=== PATIENT | female | born 1995 | race African-American/Black ===

== ENCOUNTER 2017-05-08 20:42 | Inpatient (IN) | payer MEDICAID, OTHER ==
[~2017-05-08] VITALS: Ht 165.1 cm; Wt 82.6 kg
[2017-05-09] MEDS ORDERED: FUROSEMIDE 40MG/4ML VIAL IV ONE (00:30)
[2017-05-09] MEDS ORDERED: METHYLPREDNISOLONE SOD SUCC 125 MG/2 ML VIAL IV ONE (00:30)
[2017-05-09 00:49] LABS: HEMATOCRIT. 34.8 % (36.0-48.0); HEMOGLOBIN. 11.9 g/dL (12.0-16.0); MEAN CORPUSCULAR VOLUME 87.6 fL (81.0-99.0); MEAN PLATELET VOLUME 8.4 fl (7.4-10.4); PLATELET 337 x1000/uL (130-400); RED BLOOD CELL COUNT 3.97 mill/uL (4.2-5.4); RED CELL DISTRIBUTION WIDTH 16.1 % (11.6-14.6)
[2017-05-09 00:56] LABS: INR 0.9; PROTHROMBIN TIME 9.9 sec (9.4-11.6)
[2017-05-09 01:19] LABS: CARBON DIOXIDE 25 mEq/L (21-32); CHLORIDE 101 mEq/L (98-107)
[2017-05-09 01:20] LABS: CLARITY URINE TURBID (CLEAR); COLOR URINE YELLOW (YELLOW); GLUCOSE URINE NEGATIVE (NEGATIVE); KETONES URINE NEGATIVE (NEGATIVE); LEUKOCYTE ESTERASE URINE 2+ (NEGATIVE); NITRITE URINE NEGATIVE (NEGATIVE); OCCULT BLOOD URINE 1+ (NEGATIVE); PROTEIN URINE 4+ (NEGATIVE); SPECIFIC GRAVITY URINE 1.028 (1.005-1.030); UROBILINOGEN URINE 0.2 E.U./dL (0.2-1.0)
[2017-05-09 01:27] LABS: TROPONIN I < 0.02 ng/mL (0.00-0.04)
[2017-05-09 01:41] LABS: PLATELET ESTIMATE NORMAL
[2017-05-09] MEDS ORDERED: HYDROCODONE/ACETAMINOPHEN 5/325MG TABLET PO PRN (08:15)
[2017-05-09] MEDS ORDERED: MORPHINE SULFATE 2 MG/ML CPJ (NOT FOR IM USE) IV PRN (08:15)
[2017-05-09] MEDS ORDERED: LORAZEPAM 2MG/ML CPJ IV PRN (08:15)
[2017-05-09] MEDS ORDERED: ACETAMINOPHEN 325MG TABLET PO PRN (08:15)
[2017-05-09 08:20] VITALS: BP 126/87
[2017-05-09] MEDS ORDERED: FUROSEMIDE 40MG/4ML VIAL IV SCH ×2 (09:00→13:00)
[2017-05-09 09:30] VITALS: BP 126/87
[2017-05-09] MEDS ORDERED: ENOXAPARIN 40MG/0.4ML SYR SUBCUT SCH (10:00)
[2017-05-09] MEDS ORDERED: P20 PO (10:13)
[2017-05-09] MEDS ORDERED: FURO40TA5 PO (10:13)
[2017-05-09 11:15] VITALS: BP 126/87
[2017-05-09] MEDS: LEVOFLOXACIN 500MG PREMIX 100 ML IV SCH (12:23)
[2017-05-09] MEDS: FUROSEMIDE 40MG/4ML VIAL IV SCH ×2 (12:23→16:12)
[2017-05-09] MEDS: THIAMINE HCL 100MG TABLET PO SCH (12:23)
[2017-05-09 13:04] VITALS: BP 123/77
[2017-05-09] MEDS: POTASSIUM CHLORIDE 20MEQ TABLET SR PO SCH ×2 (14:02→16:08)
[2017-05-09] MEDS: MORPHINE SULFATE 4 MG/ML CPJ (NOT FOR IM USE) IV PRN ×2 (16:09→23:10)
[2017-05-09 16:34] LABS: T4 FREE 0.38 ng/dL (0.76-1.46)
[2017-05-09] MEDS ORDERED: FUROSEMIDE 40MG TABLET PO SCH (17:00)
[2017-05-09] MEDS ORDERED: PREDNISONE 20MG TABLET PO SCH (17:00)
[2017-05-09 17:41] VITALS: BP 146/90
[2017-05-09 20:00] VITALS: BP 134/85
[2017-05-10] VITALS (14 sets, daily range): BP systolic 121–160; BP diastolic 60–99
[2017-05-10] MEDS ORDERED: METHYLPREDNISOLONE SOD SUCC 40 MG/ML VIAL IV SCH
[2017-05-10] MEDS: METHYLPREDNISOLONE SOD SUCC 40 MG/ML VIAL IV SCH ×3 (06:18→17:48)
[2017-05-10] MEDS ORDERED: FENTANYL CITRATE/PF 50MCG/ML 2ML VIAL ONE (08:15)
[2017-05-10 08:46] LABS: HEMOGLOBIN. 11.4 g/dL (12.0-16.0); MEAN CORPUSCULAR HEMOGLOBIN 29.4 pg (28.0-32.0); MEAN CORPUSCULAR VOLUME 87.2 fL (81.0-99.0); MEAN PLATELET VOLUME 7.4 fl (7.4-10.4); PLATELET 333 x1000/uL (130-400); RED CELL DISTRIBUTION WIDTH 16.2 % (11.6-14.6)
[2017-05-10] MEDS: MYCOPHENOLATE MOFETIL 500MG TABLET PO SCH ×2 (09:00→22:03)
[2017-05-10] MEDS: THIAMINE HCL 100MG TABLET PO SCH (09:00)
[2017-05-10] MEDS: HYDROXYCHLOROQUINE SULFATE 200MG TABLET PO SCH ×2 (09:00→17:48)
[2017-05-10] MEDS: FUROSEMIDE 40MG/4ML VIAL IV SCH ×2 (09:00→12:12)
[2017-05-10] MEDS ORDERED: FENTANYL CITRATE/PF 50MCG/ML 2ML VIAL IV ONE (09:45)
[2017-05-10] MEDS ORDERED: LIDOCAINE HCL 1% 20ML VIAL (Pyxis) INJ ONE (11:44)
[2017-05-10] MEDS ORDERED: SODIUM CHLORIDE 0.9% 10ML VIAL ONE (11:44)
[2017-05-10] MEDS: LEVOFLOXACIN 500MG PREMIX 100 ML IV SCH (12:13)
[2017-05-10 13:02] LABS: HEMATOCRIT 34.7 % (36.0-48.0); HEMOGLOBIN 11.8 g/dL (12.0-16.0)
[2017-05-10] MEDS ORDERED: RIVAROXABAN 15 MG TABLET PO SCH (15:00)
[2017-05-10] MEDS: FLUCONAZOLE 100MG TABLET PO SCH (17:48)
[2017-05-10 19:52] LABS: PLATELET ESTIMATE NORMAL
[2017-05-10] MEDS ORDERED: ATORVASTATIN CALCIUM 20MG TABLET PO SCH (21:00)
[2017-05-10] MEDS: MORPHINE SULFATE 4 MG/ML CPJ (NOT FOR IM USE) IV PRN (22:02)
[2017-05-11] VITALS (8 sets, daily range): BP systolic 120–152; BP diastolic 71–101
[2017-05-11] MEDS: METHYLPREDNISOLONE SOD SUCC 125 MG/2 ML VIAL IV SCH ×5 (00:43→23:58)
[2017-05-11 07:24] LABS: HEMATOCRIT. 33.1 % (36.0-48.0); HEMOGLOBIN. 11.1 g/dL (12.0-16.0); MEAN CORPUSCULAR HEMOGLOBIN 28.9 pg (28.0-32.0); MEAN CORPUSCULAR VOLUME 86.3 fL (81.0-99.0); MEAN PLATELET VOLUME 8.1 fl (7.4-10.4); PLATELET 339 x1000/uL (130-400); RED BLOOD CELL COUNT 3.83 mill/uL (4.2-5.4); RED CELL DISTRIBUTION WIDTH 15.8 % (11.6-14.6)
[2017-05-11] MEDS: RIVAROXABAN 15 MG TABLET PO SCH ×2 (09:11→17:32)
[2017-05-11] MEDS: FLUCONAZOLE 100MG TABLET PO SCH (09:11)
[2017-05-11] MEDS: MYCOPHENOLATE MOFETIL 500MG TABLET PO SCH ×2 (09:11→21:13)
[2017-05-11] MEDS: THIAMINE HCL 100MG TABLET PO SCH (09:11)
[2017-05-11] MEDS: HYDROXYCHLOROQUINE SULFATE 200MG TABLET PO SCH ×2 (09:11→17:32)
[2017-05-11 09:12] LABS: G6PD RBC 3.52 x10E6/uL (3.77-5.28)
[2017-05-11] MEDS ORDERED: OMEPRAZOLE 20MG CAPSULE EXTENDED RELEASE PO SCH (11:30)
[2017-05-11 12:58] LABS: PLATELET ESTIMATE NORMAL
[2017-05-11] MEDS: LEVOFLOXACIN 500MG PREMIX 100 ML IV SCH (13:03)
[2017-05-11 13:08] LABS: IMMUNOGLOBULIN A 75 mg/dL (87-352); IMMUNOGLOBULIN G 63 mg/dL (700-1600); IMMUNOGLOBULIN M 136 mg/dL (26-217)
[2017-05-11 15:07] LABS: RNP ANTIBODY < 0.2 AI (0.0-0.9); SMITH ANTIBODY < 0.2 AI (0.0-0.9)
[2017-05-11] MEDS: ATORVASTATIN CALCIUM 40MG TABLET PO SCH (21:13)
[2017-05-11] MEDS: MORPHINE SULFATE 4 MG/ML CPJ (NOT FOR IM USE) IV PRN (21:14)
[2017-05-12 04:40] VITALS: BP 144/96
[2017-05-12] MEDS: METHYLPREDNISOLONE SOD SUCC 125 MG/2 ML VIAL IV SCH ×4 (05:44→23:38)
[2017-05-12] MEDS: OMEPRAZOLE 20MG CAPSULE EXTENDED RELEASE PO SCH (05:45)
[2017-05-12 07:23] LABS: HEMATOCRIT. 31.8 % (36.0-48.0); HEMOGLOBIN. 10.7 g/dL (12.0-16.0); MEAN CORPUSCULAR HEMOGLOBIN 29.5 pg (28.0-32.0); MEAN CORPUSCULAR VOLUME 87.5 fL (81.0-99.0); MEAN PLATELET VOLUME 7.8 fl (7.4-10.4); PLATELET 321 x1000/uL (130-400); RED BLOOD CELL COUNT 3.63 mill/uL (4.2-5.4); RED CELL DISTRIBUTION WIDTH 16.2 % (11.6-14.6)
[2017-05-12 08:20] VITALS: BP 124/82
[2017-05-12] MEDS: HYDROXYCHLOROQUINE SULFATE 200MG TABLET PO SCH ×2 (08:38→17:03)
[2017-05-12] MEDS: FLUCONAZOLE 100MG TABLET PO SCH (08:38)
[2017-05-12] MEDS: RIVAROXABAN 15 MG TABLET PO SCH ×2 (08:38→17:03)
[2017-05-12] MEDS: MYCOPHENOLATE MOFETIL 500MG TABLET PO SCH ×2 (08:39→21:03)
[2017-05-12] MEDS: THIAMINE HCL 100MG TABLET PO SCH (08:39)
[2017-05-12 10:06] LABS: DRVVT LA 42.8 sec (0.0-47.0); PTT-LA 46.1 sec (0.0-51.9)
[2017-05-12 10:51] LABS: PLATELET ESTIMATE NORMAL
[2017-05-12] MEDS: LEVOFLOXACIN 500MG PREMIX 100 ML IV SCH (11:40)
[2017-05-12 12:20] VITALS: BP 124/76
[2017-05-12] MEDS: MORPHINE SULFATE 4 MG/ML CPJ (NOT FOR IM USE) IV PRN ×3 (12:26→23:38)
[2017-05-12] MEDS ORDERED: HEPARIN SODIUM 1,000 UNIT/1ML VIAL IV NR (15:30)
[2017-05-12 16:00] VITALS: BP 137/94
[2017-05-12 18:41] LABS: CLARITY URINE CLOUDY (CLEAR); COLOR URINE YELLOW (YELLOW); GLUCOSE URINE 2+ (NEGATIVE); KETONES URINE NEGATIVE (NEGATIVE); LEUKOCYTE ESTERASE URINE NEGATIVE (NEGATIVE); NITRITE URINE NEGATIVE (NEGATIVE); OCCULT BLOOD URINE 2+ (NEGATIVE); PROTEIN URINE 4+ (NEGATIVE); UROBILINOGEN URINE 0.2 E.U./dL (0.2-1.0)
[2017-05-12 20:35] VITALS: BP 136/94
[2017-05-12] MEDS: ATORVASTATIN CALCIUM 40MG TABLET PO SCH (21:03)
[2017-05-12 23:32] VITALS: BP 133/92
[2017-05-13 06:13] LABS: LUPUS ANTICOAG INTERPRETATION Comment: (.)
[2017-05-13 06:15] VITALS: BP 145/94
[2017-05-13] MEDS: OMEPRAZOLE 20MG CAPSULE EXTENDED RELEASE PO SCH (06:16)
[2017-05-13] MEDS: METHYLPREDNISOLONE SOD SUCC 125 MG/2 ML VIAL IV SCH ×3 (06:17→17:13)
[2017-05-13 06:42] LABS: HEMATOCRIT. 32.4 % (36.0-48.0); MEAN CORPUSCULAR HEMOGLOBIN 29.4 pg (28.0-32.0); MEAN CORPUSCULAR VOLUME 86.4 fL (81.0-99.0); MEAN PLATELET VOLUME 7.7 fl (7.4-10.4); PLATELET 302 x1000/uL (130-400); RED BLOOD CELL COUNT 3.75 mill/uL (4.2-5.4); RED CELL DISTRIBUTION WIDTH 15.8 % (11.6-14.6)
[2017-05-13 08:20] VITALS: BP 146/92
[2017-05-13] MEDS: FLUCONAZOLE 100MG TABLET PO SCH (08:45)
[2017-05-13] MEDS: HYDROXYCHLOROQUINE SULFATE 200MG TABLET PO SCH ×2 (08:45→17:13)
[2017-05-13] MEDS: RIVAROXABAN 15 MG TABLET PO SCH ×2 (08:45→17:13)
[2017-05-13] MEDS: THIAMINE HCL 100MG TABLET PO SCH (08:45)
[2017-05-13] MEDS: MYCOPHENOLATE MOFETIL 500MG TABLET PO SCH ×2 (08:45→23:13)
[2017-05-13] MEDS: MORPHINE SULFATE 4 MG/ML CPJ (NOT FOR IM USE) IV PRN ×3 (08:59→23:18)
[2017-05-13] MEDS: LISINOPRIL 10MG TABLET PO SCH ×2 (10:05→23:12)
[2017-05-13 10:06] LABS: ANTI-CARDIOLIPIN AB IGA < 9 APL U/mL (0-11); ANTI-CARDIOLIPIN AB IGG < 9 GPL U/mL (0-14); ANTI-CARDIOLIPIN AB IGM 11 MPL U/mL (0-12)
[2017-05-13 10:51] LABS: PLATELET ESTIMATE NORMAL
[2017-05-13] MEDS: LEVOFLOXACIN 250MG PREMIX 50 ML IV SCH (11:31)
[2017-05-13 12:19] VITALS: BP 124/82
[2017-05-13 13:09] LABS: ANGIOTENSION CONVERTING ENZYME 66 U/L (14-82); ANTI-MYELOPEROXIDASE AB < 9.0 U/mL (0.0-9.0); ANTI-PROTEINASE 3 ABS < 3.5 U/mL (0.0-3.5); ATYPICAL P-ANCA <1:20 titer (Neg:<1:20); CYTOPLASMIC C-ANCA <1:20 titer (Neg:<1:20); PERINUCLEAR P-ANCA <1:20 titer (Neg:<1:20)
[2017-05-13 16:00] VITALS: BP 147/100
[2017-05-13 16:30] VITALS: BP 148/100
[2017-05-13 17:12] LABS: G6PD QUANTITATIVE 322 (146-376)
[2017-05-13] MEDS: ATORVASTATIN CALCIUM 40MG TABLET PO SCH (22:59)
[2017-05-13] MEDS: PAROXETINE HCL 10MG TABLET PO SCH (23:13)
[2017-05-13] MEDS: METHYLPREDNISOLONE SOD SUCC 40 MG/ML VIAL IV SCH (23:15)
[2017-05-13] MEDS: METRONIDAZOLE 250MG TABLET PO SCH (23:23)
[2017-05-14 04:00] VITALS: BP 138/65
[2017-05-14 06:38] LABS: HEMATOCRIT. 30.9 % (36.0-48.0); HEMOGLOBIN. 10.5 g/dL (12.0-16.0); MEAN CORPUSCULAR HEMOGLOBIN 29.5 pg (28.0-32.0); MEAN CORPUSCULAR VOLUME 86.4 fL (81.0-99.0); MEAN PLATELET VOLUME 7.9 fl (7.4-10.4); PLATELET 304 x1000/uL (130-400); RED BLOOD CELL COUNT 3.57 mill/uL (4.2-5.4); RED CELL DISTRIBUTION WIDTH 16.3 % (11.6-14.6)
[2017-05-14] MEDS: METRONIDAZOLE 250MG TABLET PO SCH ×2 (06:47→14:13)
[2017-05-14] MEDS: METHYLPREDNISOLONE SOD SUCC 40 MG/ML VIAL IV SCH ×3 (06:47→20:40)
[2017-05-14 07:00] LABS: CARBON DIOXIDE 24 mEq/L (21-32); CHLORIDE 101 mEq/L (98-107)
[2017-05-14 07:39] VITALS: BP 135/79
[2017-05-14] MEDS: RIVAROXABAN 15 MG TABLET PO SCH ×2 (07:40→16:49)
[2017-05-14] MEDS ORDERED: FAMOTIDINE 20MG TABLET PO SCH (09:00)
[2017-05-14] MEDS: LISINOPRIL 10MG TABLET PO SCH ×2 (09:00→20:40)
[2017-05-14] MEDS: MYCOPHENOLATE MOFETIL 500MG TABLET PO SCH ×2 (10:19→20:40)
[2017-05-14] MEDS: HYDROXYCHLOROQUINE SULFATE 200MG TABLET PO SCH ×2 (10:20→16:49)
[2017-05-14] MEDS: PAROXETINE HCL 10MG TABLET PO SCH (10:21)
[2017-05-14] MEDS: THIAMINE HCL 100MG TABLET PO SCH (10:21)
[2017-05-14] MEDS: LEVOFLOXACIN 250MG PREMIX 50 ML IV SCH (11:47)
[2017-05-14] MEDS: MORPHINE SULFATE 4 MG/ML CPJ (NOT FOR IM USE) IV PRN ×2 (11:47→20:41)
[2017-05-14 12:00] VITALS: BP 159/80
[2017-05-14 12:00] LABS: ANTI-NUCLEAR ANTIBODIES DIRECT Negative (Negative)
[2017-05-14 15:07] LABS: COMPLEMENT C3 97 mg/dL (82-167)
[2017-05-14 16:00] VITALS: BP 120/75
[2017-05-14] MEDS ORDERED: HEPARIN SODIUM 1,000 UNIT/1ML VIAL IV NR (16:15)
[2017-05-14] MEDS: FAMOTIDINE 20MG TABLET PO SCH (16:49)
[2017-05-14 20:31] VITALS: BP 163/66
[2017-05-14] MEDS: ATORVASTATIN CALCIUM 40MG TABLET PO SCH (20:40)
[2017-05-14] MEDS: METRONIDAZOLE 500MG TABLET PO SCH (20:41)
[2017-05-14 23:03] LABS: PLATELET ESTIMATE NORMAL
[2017-05-14 23:27] VITALS: BP 148/91
[2017-05-15] MEDS: MORPHINE SULFATE 4 MG/ML CPJ (NOT FOR IM USE) IV PRN ×3 (00:18→09:45)
[2017-05-15 04:50] VITALS: BP 127/68
[2017-05-15] MEDS: METRONIDAZOLE 500MG TABLET PO SCH ×3 (05:08→21:40)
[2017-05-15] MEDS: METHYLPREDNISOLONE SOD SUCC 40 MG/ML VIAL IV SCH ×3 (05:08→21:40)
[2017-05-15] MEDS: LISINOPRIL 10MG TABLET PO SCH ×2 (09:00→21:40)
[2017-05-15] MEDS: PAROXETINE HCL 10MG TABLET PO SCH (09:30)
[2017-05-15] MEDS: THIAMINE HCL 100MG TABLET PO SCH (09:30)
[2017-05-15] MEDS: LEVOFLOXACIN 500MG PREMIX 100 ML IV SCH (09:30)
[2017-05-15] MEDS: HYDROXYCHLOROQUINE SULFATE 200MG TABLET PO SCH ×2 (09:30→15:02)
[2017-05-15] MEDS: MYCOPHENOLATE MOFETIL 500MG TABLET PO SCH ×2 (09:30→21:39)
[2017-05-15] MEDS: FAMOTIDINE 20MG TABLET PO SCH ×2 (09:31→15:02)
[2017-05-15] MEDS: RIVAROXABAN 15 MG TABLET PO SCH ×2 (09:31→15:02)
[2017-05-15 12:00] VITALS: BP 111/54
[2017-05-15 13:18] LABS: A/G RATIO 0.2 (0.7-1.7); ALBUMIN 0.6 g/dL (2.9-4.4); ALPHA-1-GLOBULIN 0.2 g/dL (0.0-0.4); ALPHA-2-GLOBULIN 1.5 g/dL (0.4-1.0); BETA GLOBULIN 0.6 g/dL (0.7-1.3); GAMMA GLOBULINS 0.2 g/dL (0.4-1.8); GLOBULIN TOTAL 2.5 g/dL (2.2-3.9); M-SPIKE 0.1 g/dL (Not Observed); TOTAL PROTEIN SERUM 3.1 g/dL (6.0-8.5)
[2017-05-15] MEDS ORDERED: AZATHIOPRINE 50MG TABLET PO SCH (17:00)
[2017-05-15 20:00] VITALS: BP 126/88
[2017-05-15] MEDS: ATORVASTATIN CALCIUM 40MG TABLET PO SCH (21:39)
[2017-05-16] VITALS: BP 141/96
[2017-05-16] MEDS: MORPHINE SULFATE 4 MG/ML CPJ (NOT FOR IM USE) IV PRN ×4 (01:38→21:40)
[2017-05-16 05:30] VITALS: BP 160/101
[2017-05-16] MEDS: METRONIDAZOLE 500MG TABLET PO SCH ×3 (05:43→21:39)
[2017-05-16] MEDS: METHYLPREDNISOLONE SOD SUCC 40 MG/ML VIAL IV SCH ×3 (05:43→21:39)
[2017-05-16 07:21] LABS: CHLORIDE 102 mEq/L (98-107)
[2017-05-16 07:47] LABS: CARBON DIOXIDE 25 mEq/L (21-32); PHOSPHORUS 2.6 mg/dL (2.5-4.9)
[2017-05-16 07:54] LABS: HEMATOCRIT. 32.2 % (36.0-48.0); HEMOGLOBIN. 10.9 g/dL (12.0-16.0); MEAN CORPUSCULAR HEMOGLOBIN 29.2 pg (28.0-32.0); MEAN PLATELET VOLUME 7.9 fl (7.4-10.4); PLATELET 330 x1000/uL (130-400); RED BLOOD CELL COUNT 3.75 mill/uL (4.2-5.4); RED CELL DISTRIBUTION WIDTH 16.4 % (11.6-14.6)
[2017-05-16 08:00] VITALS: BP 177/99
[2017-05-16] MEDS: THIAMINE HCL 100MG TABLET PO SCH (08:56)
[2017-05-16] MEDS: LISINOPRIL 10MG TABLET PO SCH ×2 (08:56→21:00)
[2017-05-16] MEDS: PAROXETINE HCL 10MG TABLET PO SCH (08:56)
[2017-05-16] MEDS: FAMOTIDINE 20MG TABLET PO SCH ×2 (08:56→17:46)
[2017-05-16] MEDS: MYCOPHENOLATE MOFETIL 500MG TABLET PO SCH ×2 (08:57→21:39)
[2017-05-16] MEDS: RIVAROXABAN 15 MG TABLET PO SCH ×2 (08:57→17:46)
[2017-05-16] MEDS: HYDROXYCHLOROQUINE SULFATE 200MG TABLET PO SCH ×2 (08:57→17:46)
[2017-05-16] MEDS: LEVOFLOXACIN 500MG PREMIX 100 ML IV SCH (11:00)
[2017-05-16 12:00] VITALS: BP 113/71
[2017-05-16 13:13] LABS: ANA IFA Negative (.)
[2017-05-16 16:56] LABS: PLATELET ESTIMATE NORMAL
[2017-05-16 20:00] VITALS: BP 114/54
[2017-05-16] MEDS: ATORVASTATIN CALCIUM 40MG TABLET PO SCH (21:39)
[2017-05-17] VITALS: BP 127/86
[2017-05-17] MEDS: LISINOPRIL 10MG TABLET PO SCH (00:06)
[2017-05-17 04:00] VITALS: BP 119/82
[2017-05-17] MEDS: METHYLPREDNISOLONE SOD SUCC 40 MG/ML VIAL IV SCH ×2 (06:34→13:37)
[2017-05-17] MEDS: METRONIDAZOLE 500MG TABLET PO SCH ×2 (06:34→13:37)
[2017-05-17 08:00] VITALS: BP 126/81
[2017-05-17] MEDS: FAMOTIDINE 20MG TABLET PO SCH (09:08)
[2017-05-17] MEDS: MYCOPHENOLATE MOFETIL 500MG TABLET PO SCH (09:08)
[2017-05-17] MEDS: PAROXETINE HCL 10MG TABLET PO SCH (09:08)
[2017-05-17] MEDS: RIVAROXABAN 15 MG TABLET PO SCH (09:08)
[2017-05-17] MEDS: HYDROXYCHLOROQUINE SULFATE 200MG TABLET PO SCH (09:09)
[2017-05-17] MEDS: THIAMINE HCL 100MG TABLET PO SCH (09:09)
[2017-05-17] MEDS: MORPHINE SULFATE 4 MG/ML CPJ (NOT FOR IM USE) IV PRN ×2 (09:10→13:38)
[2017-05-17 13:00] VITALS: BP 112/69
[2017-05-17 16:00] VITALS: BP 119/71
[2017-05-17 17:59] VITALS: BP 119/71
[2017-05-17 19:12] LABS: COMPLEMENT COMPONENT 5 28 mg/dL (7-20)
[2017-05-27] MEDS ORDERED: TRAMADOL 50MG TABLET PO PRN (12:45)
== END 2017-05-17 20:10 | disposition home or self-care (01) | DRG 462 ==
LOC: ER 20:42 → 6WST 05-09 02:29 → EDBEDREQTM 05-09 02:33 → EDBEDREQ 05-09 02:33 → ENRESERV 05-09 07:06
PROVIDERS: ADMIT Internal Medicine Nephrology; ATTEND Internal Medicine Nephrology
PROC: 0TB13ZX Excision of Left Kidney, Percutaneous Approach, Diagnostic (ICD-10-PCS; principal; 2017-05-10)
PROC: 02H633Z Insertion of Infusion Device into Right Atrium, Percutaneous Approach (ICD-10-PCS; 2017-05-10)
PROC: B5181ZA Fluoroscopy of Superior Vena Cava using Low Osmolar Contrast, Guidance (ICD-10-PCS; 2017-05-10)
PROC: B244YZZ Ultrasonography of Right Heart using Other Contrast (ICD-10-PCS; 2017-05-10)
PROC: 5A1D00Z (ICD-10-PCS; 2017-05-11)
DX: N04.9 Nephrotic syndrome with unspecified morphologic changes (principal); E43 Unspecified severe protein-calorie malnutrition; N17.9 Acute kidney failure, unspecified; N39.0 Urinary tract infection, site not specified; M10.9 Gout, unspecified; E87.6 Hypokalemia; E78.5 Hyperlipidemia, unspecified; M13.0 Polyarthritis, unspecified; E78.00 Pure hypercholesterolemia, unspecified; N18.9 Chronic kidney disease, unspecified; I12.9 Hypertensive chronic kidney disease with stage 1 through stage 4 chronic kidney disease, or unspecified chronic kidney disease; F32.9 Major depressive disorder, single episode, unspecified; F41.9 Anxiety disorder, unspecified; D72.810 Lymphocytopenia; F17.210 Nicotine dependence, cigarettes, uncomplicated; Z53.29 Procedure and treatment not carried out because of patient's decision for other reasons; Z87.441 Personal history of nephrotic syndrome; Z79.899 Other long term (current) drug therapy
CPT/HCPCS: 36415; 36556; 49180; 71010; 76770; 76937; 77001; 77012; 80048; 80053; 80061; 81001; 81025; 82164; 82595; 82784; 82955; 83520; 83735; 83880; 84100; 84134; 84155; 84156; 84165; 84439; 84484; 84550; 85014; 85018; 85025; 85041; 85379; 85610; 85613; 85651; 85732; 86038; 86147; 86160; 86225; 86235; 86256; 86334; 86592; 86780; 87070; 87086; 88305; 88346; 88348; 93005; 96374; 96375; 97165; 99291; A4216; C1752; J1644; J1940; J1956; J2060; J2270; J2920; J2930; J3010; J3490; J7030; J7040; J7050; J7500; J7512; J7517

== ENCOUNTER 2017-05-27 00:30 | Inpatient (IN) | payer MEDICAID, OTHER ==
[2017-05-27] VITALS (13 sets, daily range): BP systolic 107–146; BP diastolic 54–83
[~2017-05-27] VITALS: Ht 167.6 cm; Wt 75.7 kg
[2017-05-27] MEDS ORDERED: MORPHINE SULFATE 2 MG/ML CPJ (NOT FOR IM USE) IV STA (01:00)
[2017-05-27] MEDS ORDERED: SODIUM CHLORIDE 0.9% 1,000 ML IV ONE (01:04)
[2017-05-27 01:31] LABS: HEMATOCRIT. 24.3 % (36.0-48.0); HEMOGLOBIN. 8.7 g/dL (12.0-16.0); MEAN CORPUSCULAR HEMOGLOBIN 29.7 pg (28.0-32.0); MEAN CORPUSCULAR VOLUME 83.4 fL (81.0-99.0); PLATELET 150 x1000/uL (130-400); RED BLOOD CELL COUNT 2.91 mill/uL (4.2-5.4); RED CELL DISTRIBUTION WIDTH 15.7 % (11.6-14.6)
[2017-05-27] MEDS ORDERED: MORPHINE SULFATE 4 MG/ML CPJ (NOT FOR IM USE) IV NR (01:45)
[2017-05-27 02:13] LABS: PLATELET ESTIMATE NORMAL
[2017-05-27 02:20] LABS: CLARITY URINE CLEAR (CLEAR); COLOR URINE YELLOW (YELLOW); GLUCOSE URINE TRACE (NEGATIVE); KETONES URINE NEGATIVE (NEGATIVE); LEUKOCYTE ESTERASE URINE NEGATIVE (NEGATIVE); NITRITE URINE NEGATIVE (NEGATIVE); OCCULT BLOOD URINE NEGATIVE (NEGATIVE); PROTEIN URINE NEGATIVE (NEGATIVE); SPECIFIC GRAVITY URINE 1.006 (1.005-1.030); UROBILINOGEN URINE 0.2 E.U./dL (0.2-1.0)
[2017-05-27 02:43] LABS: CHLORIDE 93 mEq/L (98-107)
[2017-05-27 02:57] LABS: AMMONIA 35 uMol/L (<32)
[2017-05-27 02:59] LABS: CARBON DIOXIDE 37 mEq/L (21-32); ETHANOL BLOOD < 10 mg/dL
[2017-05-27 03:02] LABS: CREATINE KINASE 1576 IU/L (26-192)
[2017-05-27 03:11] LABS: *AMPHETAMINES SCREEN URINE NEGATIVE (NEGATIVE); *BARBITURATES SCREEN URINE NEGATIVE (NEGATIVE); *BENZODIAZEPINES SCREEN URINE NEGATIVE (NEGATIVE); *COCAINE SCREEN URINE NEGATIVE (NEGATIVE); CANNABINOID URINE SCREEN PRESUMTIVE POSITIVE (NEGATIVE); METHADONE URINE SCREEN NEGATIVE (NEGATIVE); OPIATES URINE SCREEN NEGATIVE (NEGATIVE); PHENCYCLIDINE URINE SCREEN NEGATIVE (NEGATIVE)
[2017-05-27] MEDS ORDERED: SODIUM CHLORIDE 0.9% 1000ML BAG (SEPSIS BOLUS) IV NR (03:15)
[2017-05-27] MEDS ORDERED: POTASSIUM BICARB/CIT ACID 25 MEQ TABLET.EFF PO NR (03:15)
[2017-05-27] MEDS ORDERED: MAGNESIUM 1 G PREMIX 100 ML IV NR (03:15)
[2017-05-27] MEDS ORDERED: KCL 20MEQ/100ML PREMIX 100 ML IV NR (04:00)
[2017-05-27] MEDS ORDERED: LACTULOSE 20G/30ML UDC PO NR (04:30)
[2017-05-27] MEDS ORDERED: CALCIUM CHLORIDE 1,000 MG in DEXT 5% WATER 90 ML IV NR (05:00)
[2017-05-27] MEDS ORDERED: DEXT 5%/0.9% NACL 1,000 ML IV SCH (06:00)
[2017-05-27 07:51] LABS: HEMATOCRIT. 24.4 % (36.0-48.0); HEMOGLOBIN. 8.5 g/dL (12.0-16.0); MEAN CORPUSCULAR HEMOGLOBIN 29.4 pg (28.0-32.0); MEAN CORPUSCULAR VOLUME 84.6 fL (81.0-99.0); MEAN PLATELET VOLUME 8.3 fl (7.4-10.4); PLATELET 138 x1000/uL (130-400); RED BLOOD CELL COUNT 2.88 mill/uL (4.2-5.4); RED CELL DISTRIBUTION WIDTH 15.6 % (11.6-14.6)
[2017-05-27 07:57] LABS: CARBON DIOXIDE 35 mEq/L (21-32); CHLORIDE 97 mEq/L (98-107)
[2017-05-27] MEDS ORDERED: CLONIDINE 0.1MG TABLET PO PRN (11:15)
[2017-05-27] MEDS ORDERED: ONDANSETRON HCL 4MG/2ML VIAL IV PRN (11:15)
[2017-05-27] MEDS ORDERED: POTASSIUM CHLORIDE INJ 40 MEQ in DEXT 5% WATER 250 ML IV NR (11:30)
[2017-05-27] MEDS ORDERED: MAGNESIUM 2 G PREMIX 50 ML IV NR (12:00)
[2017-05-27] MEDS ORDERED: KCL 10MEQ/50ML PREMIX 50 ML IV SCH (12:00)
[2017-05-27] MEDS ORDERED: DEXT 5%/0.45% NACL KCL 10MEQ/L 1,000 ML IV SCH (12:00)
[2017-05-27] MEDS: MULTIVITAMINS,THER W-MINERALS TABLET PO SCH (12:15)
[2017-05-27 13:40] LABS: PLATELET ESTIMATE NORMAL
[2017-05-27] MEDS: ACETAMINOPHEN 325MG TABLET PO PRN (14:50)
[2017-05-27] MEDS: HYDROCODONE/ACETAMINOPHEN 5/325MG TABLET PO PRN (20:57)
[2017-05-27] MEDS: ATORVASTATIN CALCIUM 40MG TABLET PO SCH (21:04)
[2017-05-27] MEDS: LISINOPRIL 5MG TABLET PO SCH (21:04)
[2017-05-27] MEDS ORDERED: FAMO20TA8 PO (22:01)
[2017-05-27] MEDS ORDERED: FURO40TA5 PO (22:01)
[2017-05-27] MEDS ORDERED: ATOR40TA70 PO (22:01)
[2017-05-27] MEDS ORDERED: CELL5 PO (22:01)
[2017-05-27] MEDS ORDERED: RIVA10TA PO (22:01)
[2017-05-27] MEDS ORDERED: PRED10TA PO (22:01)
[2017-05-27] MEDS ORDERED: PARO-41 PO (22:01)
[2017-05-27] MEDS: MYCOPHENOLATE MOFETIL 500MG TABLET PO SCH (22:32)
[2017-05-28] VITALS: BP 126/67
[2017-05-28 02:04] VITALS: BP 120/70
[2017-05-28 04:00] VITALS: BP 138/84
[2017-05-28] MEDS: HYDROCODONE/ACETAMINOPHEN 5/325MG TABLET PO PRN ×2 (05:20→18:47)
[2017-05-28 06:00] VITALS: BP 131/76
[2017-05-28] MEDS: PREDNISONE 20MG TABLET PO SCH (06:14)
[2017-05-28 07:13] LABS: CARBON DIOXIDE 37 mEq/L (21-32); CHLORIDE 98 mEq/L (98-107); HDL CHOLESTEROL 74 mg/dL (40-59); LDL CHOLESTEROL 45 mg/dL (5-100)
[2017-05-28] MEDS: MYCOPHENOLATE MOFETIL 500MG TABLET PO SCH ×2 (09:38→21:04)
[2017-05-28] MEDS: MULTIVITAMINS,THER W-MINERALS TABLET PO SCH (09:38)
[2017-05-28] MEDS: RIVAROXABAN 15 MG TABLET PO SCH ×2 (09:41→18:32)
[2017-05-28] MEDS: MAGNESIUM OXIDE 400MG TABLET PO SCH ×3 (09:41→18:32)
[2017-05-28] MEDS: PAROXETINE HCL 10MG TABLET PO SCH (09:41)
[2017-05-28] MEDS: LISINOPRIL 5MG TABLET PO SCH (09:41)
[2017-05-28] MEDS: POTASSIUM CHLORIDE 20MEQ TABLET SR PO SCH ×5 (10:49→20:00)
[2017-05-28 20:00] VITALS: BP 124/66
[2017-05-28] MEDS: ATORVASTATIN CALCIUM 40MG TABLET PO SCH (21:04)
[2017-05-28] MEDS: ACETAMINOPHEN 325MG TABLET PO PRN (21:09)
[2017-05-28 22:00] VITALS: BP 129/68
[2017-05-29] VITALS (11 sets, daily range): BP systolic 125–135; BP diastolic 65–96
[2017-05-29] MEDS: HYDROCODONE/ACETAMINOPHEN 5/325MG TABLET PO PRN ×2 (04:33→13:12)
[2017-05-29 05:59] LABS: HEMATOCRIT. 23.8 % (36.0-48.0); HEMOGLOBIN. 8.3 g/dL (12.0-16.0); MEAN CORPUSCULAR HEMOGLOBIN 29.8 pg (28.0-32.0); MEAN CORPUSCULAR VOLUME 85.3 fL (81.0-99.0); MEAN PLATELET VOLUME 8.4 fl (7.4-10.4); PLATELET 119 x1000/uL (130-400); RED BLOOD CELL COUNT 2.79 mill/uL (4.2-5.4)
[2017-05-29] MEDS: PREDNISONE 20MG TABLET PO SCH (06:16)
[2017-05-29 06:51] LABS: CARBON DIOXIDE 33 mEq/L (21-32); CHLORIDE 102 mEq/L (98-107)
[2017-05-29] MEDS: MAGNESIUM OXIDE 400MG TABLET PO SCH ×3 (08:12→16:58)
[2017-05-29] MEDS: MULTIVITAMINS,THER W-MINERALS TABLET PO SCH (08:12)
[2017-05-29] MEDS: MYCOPHENOLATE MOFETIL 500MG TABLET PO SCH (08:12)
[2017-05-29] MEDS: PAROXETINE HCL 10MG TABLET PO SCH (08:15)
[2017-05-29] MEDS: RIVAROXABAN 15 MG TABLET PO SCH ×2 (08:15→17:00)
[2017-05-29] MEDS: LISINOPRIL 5MG TABLET PO SCH (08:15)
[2017-05-29] MEDS ORDERED: POTASSIUM CHLORIDE 20MEQ/PACKET PO SCH ×2 (10:00→13:00)
[2017-05-29] MEDS: TRAMADOL 50MG TABLET PO PRN ×2 (10:14→17:00)
[2017-05-29 13:39] LABS: PLATELET ESTIMATE DECREASED
== END 2017-05-29 21:30 | disposition home or self-care (01) | DRG 425 ==
LOC: ER 00:51 → 5EST 03:20 → EDBEDREQSVC 03:55 → EDBEDREQ 03:55 → ENRESERV 04:31
PROVIDERS: ADMIT Hospitalist; ATTEND Hospitalist
DX: E87.6 Hypokalemia (principal); E43 Unspecified severe protein-calorie malnutrition; E87.2 Acidosis; M62.82 Rhabdomyolysis; N04.9 Nephrotic syndrome with unspecified morphologic changes; E83.42 Hypomagnesemia; E83.51 Hypocalcemia; T50.2X5A Adverse effect of carbonic-anhydrase inhibitors, benzothiadiazides and other diuretics, initial encounter; D64.9 Anemia, unspecified; E78.00 Pure hypercholesterolemia, unspecified; E87.5 Hyperkalemia; Z68.27 Body mass index [BMI] 27.0-27.9, adult; Y92.89 Other specified places as the place of occurrence of the external cause
CPT/HCPCS: 36415; 70450; 71010; 80053; 80061; 80305; 81001; 82140; 82330; 82550; 83605; 83690; 83735; 83880; 85025; 96374; 99291; G0482; J2270; J3475; J3480; J3490; J7030; J7042; J7060; J7512; J7517

== ENCOUNTER 2017-05-31 08:07 | Inpatient (IN) | payer MEDICAID, OTHER ==
[~2017-05-31] VITALS: Ht 160 cm; Wt 72.6 kg
[~2017-05-31 08:07] MED LIST: ATOR40TA70 PO; CELL5 PO; FAMO20TA8 PO; PARO-41 PO; RIVA10TA PO
[2017-05-31] MEDS ORDERED: SODIUM CHLORIDE 0.9% 1,000 ML IV ONE (08:18)
[2017-05-31] MEDS ORDERED: LORAZEPAM 2MG/ML CPJ IV STA (08:18)
[2017-05-31 08:44] LABS: BASOPHILS % 0.8 % (0.0-2.0); HEMATOCRIT. 32.4 % (36.0-48.0); HEMOGLOBIN. 11.2 g/dL (12.0-16.0); MEAN CORPUSCULAR HEMOGLOBIN 29.4 pg (28.0-32.0); MEAN PLATELET VOLUME 8.4 fl (7.4-10.4); MONOCYTES % 7.7 % (2.0-8.0); NEUTROPHILS % 65.5 % (40.0-76.0); PLATELET 95 x1000/uL (130-400); RED BLOOD CELL COUNT 3.81 mill/uL (4.2-5.4); RED CELL DISTRIBUTION WIDTH 16.3 % (11.6-14.6)
[2017-05-31 08:53] LABS: INR 1.1; PROTHROMBIN TIME 11.4 sec (9.4-11.6)
[2017-05-31 08:54] LABS: AMMONIA 40 uMol/L (<32)
[2017-05-31 09:02] LABS: CARBON DIOXIDE 19 mEq/L (21-32); CHLORIDE 95 mEq/L (98-107); ETHANOL BLOOD < 10 mg/dL
[2017-05-31] MEDS ORDERED: VANCOMYCIN 1 G PREMIX 200 ML IV ONE (09:15)
[2017-05-31] MEDS ORDERED: MEROPENEM 1,000 MG in SODIUM CHLORIDE 0.9% 100 ML IV ONE (09:15)
[2017-05-31] MEDS ORDERED: SODIUM CHLORIDE 0.9% 1000ML BAG (SEPSIS BOLUS) IV ONE (09:15)
[2017-05-31 09:26] LABS: CLARITY URINE CLEAR (CLEAR); COLOR URINE YELLOW (YELLOW); GLUCOSE URINE NEGATIVE (NEGATIVE); KETONES URINE NEGATIVE (NEGATIVE); LEUKOCYTE ESTERASE URINE NEGATIVE (NEGATIVE); NITRITE URINE NEGATIVE (NEGATIVE); OCCULT BLOOD URINE NEGATIVE (NEGATIVE); PH URINE 5.5 (4.5-8.0); PROTEIN URINE 2+ (NEGATIVE); SPECIFIC GRAVITY URINE 1.017 (1.005-1.030); UROBILINOGEN URINE 0.2 E.U./dL (0.2-1.0)
[2017-05-31 09:32] LABS: BG BASE EXCESS -1.7 mmol/L (-2.0-2.0); BG CARBOXYHEMOGLOBIN 0.3 % (0.5-1.5); BG FRACTION INSPIRED OXYGEN 21; BG METHEMOGLOBIN 0.2 % (0.0-1.5); BG OXYHEMOGLOBIN 97.5 % (94.0-97.0); BG PH 7.521 (7.350-7.450); BG PO2 107.4 mmHg (75.0-100.0); BG SAMPLE SITE RIGHT BRACHIAL; BG VENT MODE ROOM AIR
[2017-05-31 09:45] LABS: *AMPHETAMINES SCREEN URINE NEGATIVE (NEGATIVE); *BARBITURATES SCREEN URINE NEGATIVE (NEGATIVE); *BENZODIAZEPINES SCREEN URINE NEGATIVE (NEGATIVE); *COCAINE SCREEN URINE NEGATIVE (NEGATIVE); METHADONE URINE SCREEN NEGATIVE (NEGATIVE); OPIATES URINE SCREEN NEGATIVE (NEGATIVE); PHENCYCLIDINE URINE SCREEN NEGATIVE (NEGATIVE)
[2017-05-31 09:49] LABS: CANNABINOID URINE SCREEN PRESUMTIVE POSITIVE (NEGATIVE)
[2017-05-31] MEDS ORDERED: NITROGLYCERIN 0.4MG TABLET SL SL PRN (10:00)
[2017-05-31] MEDS ORDERED: GUAIFENESIN 200MG/10ML SUGAR FREE UDC PO PRN (10:00)
[2017-05-31] MEDS ORDERED: ONDANSETRON HCL 4MG/2ML VIAL IV PRN (10:00)
[2017-05-31] MEDS ORDERED: DOCUSATE SODIUM 100MG CAPSULE PO PRN (10:00)
[2017-05-31] MEDS ORDERED: IPRATROPIUM/ALBUTEROL 0.5-3(2.5)MG/3ML NEB INH PRN (10:00)
[2017-05-31] MEDS ORDERED: CLONIDINE 0.1MG TABLET PO PRN (10:00)
[2017-05-31] MEDS ORDERED: DIPHENHYDRAMINE 50MG/ML VIAL IV PRN (10:00)
[2017-05-31] MEDS ORDERED: NA PHOS,M-B/NA PHOS,DI-BA ENEMA 118ML PR PRN (10:00)
[2017-05-31] MEDS ORDERED: MAGNESIUM/ALUMINUM HYDROXIDE/SIMETHICONE 30ML UDC PO PRN (10:00)
[2017-05-31] MEDS ORDERED: ACETAMINOPHEN 325MG TABLET PO PRN (10:00)
[2017-05-31 13:52] VITALS: BP 111/52
[2017-05-31 14:11] VITALS: BP 111/52
[2017-05-31] MEDS: SODIUM CHLORIDE 0.9% 1,000 ML IV SCH (14:35)
[2017-05-31] MEDS ORDERED: P50 PO (14:44)
[2017-05-31] MEDS ORDERED: FURO40TA5 PO (14:44)
[2017-05-31 16:00] VITALS: BP 97/54
[2017-05-31] MEDS ORDERED: CEFTRIAXONE 1 G PREMIX 50 ML IV SCH (16:00)
[2017-05-31] MEDS ORDERED: LEVOFLOXACIN 500MG PREMIX 100 ML IV SCH (16:00)
[2017-05-31 16:13] LABS: CREATINE KINASE MB FRACTION 2.2 ng/mL (0.5-3.6); TROPONIN I 0.29 ng/mL (0.00-0.04)
[2017-05-31] MEDS ORDERED: RIVAROXABAN 20 MG TABLET PO SCH (17:00)
[2017-05-31 18:00] VITALS: BP 95/46
[2017-05-31] MEDS: LORAZEPAM 2MG/ML CPJ IV PRN (18:38)
[2017-05-31 20:00] VITALS: BP 109/59
[2017-05-31] MEDS ORDERED: ZOLPIDEM TARTRATE 5MG TABLET PO PRN (21:00)
[2017-05-31] MEDS ORDERED: ATORVASTATIN CALCIUM 40MG TABLET PO SCH (21:00)
[2017-05-31] MEDS: MYCOPHENOLATE MOFETIL 500MG TABLET PO SCH (21:11)
[2017-05-31] MEDS: FAMOTIDINE 20MG/2ML VIAL IV SCH (21:20)
[2017-05-31 22:00] VITALS: BP 96/50
[2017-05-31 23:18] LABS: CREATINE KINASE MB FRACTION 2.5 ng/mL (0.5-3.6); TROPONIN I 0.11 ng/mL (0.00-0.04)
[2017-06-01] VITALS (8 sets, daily range): BP systolic 88–116; BP diastolic 37–57
[2017-06-01] MEDS: KETOROLAC 15MG/ML VIAL IV PRN ×2 (00:40→07:47)
[2017-06-01] MEDS: SODIUM CHLORIDE 0.9% 1,000 ML IV SCH (01:15)
[2017-06-01] MEDS: LORAZEPAM 2MG/ML CPJ IV PRN ×2 (01:16→09:02)
[2017-06-01] MEDS: MYCOPHENOLATE MOFETIL 500MG TABLET PO SCH (08:04)
[2017-06-01] MEDS: FAMOTIDINE 20MG/2ML VIAL IV SCH (08:04)
[2017-06-01] MEDS ORDERED: ASPIRIN 325MG EC TABLET PO SCH (09:00)
== END 2017-06-01 14:11 | disposition home or self-care (01) | DRG 422 ==
LOC: ER 08:07 → 3WST 09:22 → ENRESERV 11:42
PROVIDERS: ADMIT Internal Medicine; ATTEND Internal Medicine
DX: E86.0 Dehydration (principal); E43 Unspecified severe protein-calorie malnutrition; E87.2 Acidosis; M32.9 Systemic lupus erythematosus, unspecified; N04.9 Nephrotic syndrome with unspecified morphologic changes; E87.1 Hypo-osmolality and hyponatremia; D64.9 Anemia, unspecified; E78.00 Pure hypercholesterolemia, unspecified; F12.10 Cannabis abuse, uncomplicated; R74.0 Nonspecific elevation of levels of transaminase and lactic acid dehydrogenase [LDH]; Z79.899 Other long term (current) drug therapy; Z68.28 Body mass index [BMI] 28.0-28.9, adult
CPT/HCPCS: 36415; 36600; 51702; 70450; 71010; 76705; 80053; 80061; 80305; 80307; 80329; 81001; 81025; 82140; 82375; 82550; 82553; 82805; 83036; 83605; 83690; 83880; 84443; 84484; 85025; 85610; 87040; 87086; 93005; 93970; 96365; 96367; 96375; 99291; G0482; J0696; J1885; J1956; J2060; J2185; J3370; J3490; J7030; J7050; J7517; A4315

== ENCOUNTER 2017-07-13 12:17 | Emergency (ER) | payer MEDICAID ==
[~2017-07-13] VITALS: Ht 165.1 cm; Wt 68.0 kg
[~2017-07-13 12:17] MED LIST changes: +FURO40TA5 PO; +P50 PO
[2017-07-13] MEDS ORDERED: METHYLPREDNISOLONE SOD SUCC 125 MG/2 ML VIAL IV ONE (13:00)
[2017-07-13] MEDS ORDERED: DIPHENHYDRAMINE 50MG CAPSULE PO ONE (13:00)
[2017-07-13 13:24] LABS: BASOPHILS % 0.7 % (0.0-2.0); EOSINOPHILS % 1.8 % (0.0-5.0); HEMATOCRIT. 34.2 % (36.0-48.0); HEMOGLOBIN. 11.3 g/dL (12.0-16.0); LYMPHOCYTES % 18.3 % (20.0-50.0); MEAN CORPUSCULAR HEMOGLOBIN 29.7 pg (28.0-32.0); MEAN CORPUSCULAR VOLUME 89.6 fL (81.0-99.0); MEAN PLATELET VOLUME 7.2 fl (7.4-10.4); MONOCYTES % 4.9 % (2.0-8.0); NEUTROPHILS % 74.3 % (40.0-76.0); PLATELET 517 x1000/uL (130-400); RED BLOOD CELL COUNT 3.81 mill/uL (4.2-5.4); RED CELL DISTRIBUTION WIDTH 16.2 % (11.6-14.6)
[2017-07-13 13:29] LABS: PROTHROMBIN TIME 10.4 sec (9.4-11.6)
[2017-07-13 13:32] LABS: HCG SCREEN NEGATIVE
[2017-07-13 13:40] LABS: CARBON DIOXIDE 26 mEq/L (21-32); CHLORIDE 106 mEq/L (98-107)
[2017-07-13] MEDS ORDERED: ACETAMINOPHEN 325MG TABLET PO ONE (13:45)
[2017-07-13 15:33] VITALS: BP 154/83
== END 2017-07-13 15:47 | disposition home or self-care (01) ==
LOC: ER 13:21
DX: E88.09 Other disorders of plasma-protein metabolism, not elsewhere classified (principal); H11.421 Conjunctival edema, right eye; M79.651 Pain in right thigh; N18.6 End stage renal disease; N04.9 Nephrotic syndrome with unspecified morphologic changes; F17.200 Nicotine dependence, unspecified, uncomplicated; F12.10 Cannabis abuse, uncomplicated; Z79.01 Long term (current) use of anticoagulants; Z99.2 Dependence on renal dialysis
CPT/HCPCS: 36415; 80053; 83690; 83880; 84703; 85025; 85610; 93970; 96374; 99285; J2930; Q0163

== ENCOUNTER 2017-09-17 15:04 | Emergency (ER) | payer MEDICAID ==
[~2017-09-17] VITALS: Ht 165.1 cm; Wt 63.0 kg
[~2017-09-17 15:04] MED LIST changes: +CEPH-568 PO; -FAMO20TA8 PO; +RIVA20TA PO
[2017-09-17 19:35] VITALS: BP 115/67
== END 2017-09-17 19:57 | disposition home or self-care (01) ==
LOC: ER 15:52
DX: R60.0 Localized edema (principal); M32.9 Systemic lupus erythematosus, unspecified; Z76.0 Encounter for issue of repeat prescription; Z72.0 Tobacco use; F12.90 Cannabis use, unspecified, uncomplicated
CPT/HCPCS: 99283

== ENCOUNTER 2017-09-22 22:21 | Emergency (ER) | payer MEDICAID ==
[~2017-09-22] VITALS: Ht 165.1 cm; Wt 89.0 kg
[2017-09-22 22:45] VITALS: BP 123/77
== END 2017-09-23 03:56 | disposition left against medical advice (07) ==
LOC: ER 22:22
DX: Z53.21 Procedure and treatment not carried out due to patient leaving prior to being seen by health care provider (principal); M32.9 Systemic lupus erythematosus, unspecified; Z87.441 Personal history of nephrotic syndrome; Z87.891 Personal history of nicotine dependence